=== PATIENT | male | born 1960 | race Caucasian/White ===

== ENCOUNTER 2021-02-17 08:30 | Emergency (ER) | payer OTHER, SELFPAY ==
--- NOTE | ~2021-02-17 | XR_ITS ---
EXAMINATION: XR chest 2V DATE: 02/17/2021 09:04 INDICATION: Smoker presented with congestion TECHNIQUE: PA and lateral views of the chest were obtained. COMPARISON: Chest radiograph dated 07/08/2005 FINDINGS: The lungs remain clear with no focal airspace opacities, pulmonary edema, pleural effusion or pneumot horax. The cardiomediastinal silhouette is normal. Instrumented posterior and anterior spinal fusion at the lower cervical spine and cervicothoracic junction respectively. IMPRESSION: 1. No acute cardiopulmonary disease. Reviewed, dictated and finalized at location A.
[2021-02-17 08:46] VITALS: BP 189/86; PULSE 90; RESP 16; TEMP 36.8; O2SAT 100
--- NOTE | 2021-02-17 08:46 | ED.URI ---
HPI - URI/Sore Throat General Chief Complaint: Upper Respiratory Infection Stated Complaint: CONGESTION Time Seen by Provider: 02/17/21 08:47 Source: patient and RN notes reviewed Mode of arrival: ambulatory Limitations: no limitations History of Present Illness HPI Narrative: 60-year-old male presents to the [facility] with complaints of chest congestion and cough for 2 months. Denies chest pain. States he is tried [id number] products such as Sudafed which does not help. Patient is a smoker states that he is trying to quit due to a new grandbaby. Has a history of high blood pressure, states that his blood pressure medication makes him feel awful on day 3 so he stopped taking them and has not taken any in several weeks.. Educated patient on the importance of blood pressure management. Related Data Home Medications Medication Instructions Recorded Confirmed atorvastatin 1 mg PO DAILY 02/17/21 02/17/21 oxycodone [OxyContin] 1 mg PO BID 02/17/21 02/17/21 oxycodone-acetaminophen 1 tablet PO TID 02/17/21 02/17/21 Allergies Allergy/AdvReac Type Severity Reaction Status Date / Time amoxicillin Allergy Unknown Nausea and Verified 02/17/21 08:56 Vomiting clavulanic acid Allergy Unknown Nausea and Verified 02/17/21 08:56 Vomiting Review of Systems Review of Systems: All systems reviewed & are unremarkable except as noted in HPI and below Constitutional: Constitutional: Reports no additional constitutional complaints, Denies chills, Denies fever(s) and Denies weakness Eyes: Eyes: Reports no additional eye complaints ENT: Reports system reviewed and no additional complaints, except as documented Cardiovascular: Cardiovascular: Reports no additional cardiovascular complaints, Denies chest pain and Denies radiating jaw, neck or arm pain Respiratory: Respiratory: Reports as per HPI, Reports chest congestion, Reports cough, Denies dyspnea and Denies wheezing Gastrointestinal: Gastrointestinal: Reports no additional gastrointestinal complaints, Denies abdominal pain, Denies nausea and Denies vomiting Musculoskeletal: Musculoskeletal: Reports no additional musculoskeletal complaints, Denies back pain, Denies myalgias, Denies arthralgias and Denies joint swelling Integumentary/Breasts: Skin/Breast: Reports system reviewed and no additional complaints, except as docu Neurologic: Reports system reviewed and no additional complaints, except as documented, Denies dizziness, Denies syncope, Denies headache(s), Denies focal weakness and Denies numbness Psychiatric: Psychiatric: Reports no additional psychiatric complaints Allergic/Immunologic: Allergic/Immunologic: Reports no additional allergic/immunologic complaints [facility] Past Medical History Medical History (Updated 02/17/21 @ 18:57 by Marlene Collins) Hypertension Social History Social History Gender identity (if verbalized by the patient): Male Comments At the time of my signature, I reviewed and agree with the nursing past medical, surgical, social, and family history. There is no relevant family history pertinent to the patient complaint. Exam Const: General: healthy appearing, no acute distress and alert Nutritional Appearance: well nourished and obese centrally obese Orientation/consciousness: patient oriented x3 HENMT: Head: normal to inspection Ears: external ears normal and TM's normal bilaterally Face and sinus: normal facial exam Eyes: Conjunctivae: conjunctivae normal Pupils: Equal, round and reactive pupils present Neck: Neck: normal visual inspection, no lymphadenopathy and no meningeal signs Chest: Chest palpation & inspection: normal inspection of the chest Resp: Effort & Inspection: normal respiratory effort and no use of accessory muscles Auscultation: crackles, no rales, no rhonchi, no wheezes and diminished lung sounds (Bilateral lower lungs) Cardio: Rate: regular rate Rhythm: re
== END 2021-02-17 09:47 | disposition home or self-care (01) ==
PROVIDERS: Emergency Provider Nurse Practitioner; PCP Internal Medicine
DX: J40 Bronchitis, not specified as acute or chronic (principal); I10 Essential (primary) hypertension
CPT/HCPCS: 71046; 99213; G0463